=== PATIENT | male | born 1985 | race Caucasian/White ===

== ENCOUNTER 2021-07-23 09:18 | Emergency (ER) | payer BC ==
--- NOTE | 2021-07-23 10:02 | EDM.PDOC ---
ED HPI GENERAL MEDICAL PROBLEM - General Chief Complaint: Back Pain or Injury Stated Complaint: PAIN IN LOWER BACK SIDE Time Seen by Provider: 07/23/21 09:33 Source of Information: Reports: Patient History Limitations: Reports: No Limitations - History of Present Illness INITIAL COMMENTS - FREE TEXT/NARRATIVE: Patient is a 36-year-old male came in today for right-sided flank pain. Patient states that the pain started around 2 AM's been constant in nature radiates up his back not made better or worse with anything. Denies any direct injuries to his back. Denies any urinary symptoms no blood in his urine denies any fever chills nausea vomiting. Right Back Pain Score (Numeric/FACES): 5 - Related Data Allergies Allergy/AdvReac Type Severity Reaction Status Date / Time No Known Allergies Allergy Verified 07/23/21 09:46 Home Meds: Home Meds . [No Known Home Meds] 07/23/21 [History] Past Medical History - Past Health History Medical/Surgical History: Denies Medical/Surgical History Social & Family History - Tobacco Use Tobacco Use Status *Q: Current Every Day Tobacco User Years of Tobacco use: 15 Packs/Tins Daily: 1 - Recreational Drug Use Recreational Drug Use: No ED ROS GENERAL - Review of Systems Review Of Systems: See Below Constitutional: Reports: No Symptoms HEENT: Reports: No Symptoms Respiratory: Reports: No Symptoms Cardiovascular: Reports: No Symptoms Endocrine: Reports: No Symptoms GI/Abdominal: Reports: No Symptoms : Reports: No Symptoms Musculoskeletal: Reports: Back Pain Skin: Reports: No Symptoms Neurological: Reports: No Symptoms Psychiatric: Reports: No Symptoms Hematologic/Lymphatic: Reports: No Symptoms Immunologic: Reports: No Symptoms ED EXAM,LOWER BACK PAIN/INJURY - Physical Exam Exam: See Below Exam Limited By: No Limitations General Appearance: Alert, WD/WN, No Apparent Distress Head: Atraumatic Respiratory/Chest: No Respiratory Distress, Lungs Clear, Normal Breath Sounds Cardiovascular: Normal Peripheral Pulses, Regular Rate, Rhythm GI/Abdominal: Normal Bowel Sounds, Soft, Non-Tender Back Exam: Normal Inspection, Full Range of Motion, CVA Tenderness (L), CVA Tenderness (R) Extremities: Normal Inspection Neurological: Alert, Oriented x 3 Course - Vital Signs Last Recorded V/S: Last Vital Signs Temp 97.9 F 07/23/21 09:46 Pulse 99 07/23/21 09:46 Resp 18 07/23/21 09:46 BP 125/84 07/23/21 09:46 Pulse Ox 97 07/23/21 09:46 - Orders/Labs/Meds Labs: Laboratory Tests 07/23/21 Range/Units 10:40 Urine Color YELLOW Urine Appearance CLEAR Urine pH 7.0 (5.0-8.0) Ur Specific [place] 1.010 (1.001-1.035) Urine Protein NEGATIVE (NEGATIVE) mg/dL Urine Glucose (UA) NEGATIVE (NEGATIVE) mg/dL Urine Ketones NEGATIVE (NEGATIVE) mg/dL Urine Occult Blood NEGATIVE (NEGATIVE) Urine Nitrite NEGATIVE (NEGATIVE) Urine Bilirubin NEGATIVE (NEGATIVE) Urine Urobilinogen 0.2 (<2.0) EU/dL Ur Leukocyte Esterase NEGATIVE (NEGATIVE) - Re-Assessments/Exams Free Text/Narrative Re-Assessment/Exam: 07/23/21 11:26 Pt CAT scan showed a possible passed stone. Pain is resolved patient be discharged home Departure - Departure Time of Disposition: 11:26 Disposition: Home, Self-Care 01 Condition: Good Clinical Impression: Kidney stone on right side - Discharge Information *PRESCRIPTION DRUG MONITORING PROGRAM REVIEWED*: Not Applicable *COPY OF PRESCRIPTION DRUG MONITORING REPORT IN PATIENT KEVIN: Not Applicable Instructions: Kidney Stones, [id number] Referrals: PCP,None [Primary Care Provider] - Forms: ED Department Discharge Additional Instructions: You were seen today for pain to your right side your CAT scan showed a possible passed kidney stone. Recommend you go home continue to hydrate take Tylenol or Motrin as needed and follow-up to primary care physician. The following information is given to patients seen in the emergency department who are being discharged to home. This information is to outline your options for follow-up care. We provide all patients seen in our emergency department with a follow-up referral. The need for follow-up, as well as the timing and circumstances, are variable depending upon the specifics of your emergency department visit. If you don't have a primary care physician on staff, we will provide you with a referral. We always advise you to contact your personal physician following an emergency department visit to inform them of the circumstance of the visit and for follow-up with them and/or the need for any referrals to a consulting specialist. The emergency department will also refer you to a specialist when appropriate. This referral assures that you have the opportunity for follow-up care with a specialist. All of these measure are taken in an effort to provide you with optimal care, which includes your follow-up. Under all circumstances we always encourage you to contact your private physi nandini who remains a resource for coordinating your care. When calling for follow- up care, please make the office aware that this follow-up is from your recent emergency room visit. If for any reason you are refused follow-up, please contact the [facility] Emergency Department at and asked to speak to the emergency department charge nurse. Please follow up with your primary care physician. If you do not have a primary care physician, see below: [facility] [address] [place] [id number] [facility] [address] [place] [address] Sepsis Event Note (ED) - Evaluation Sepsis Screening Result: No Definite Risk - Focused Exam Vital Signs: Vital Signs Temp Pulse Resp BP Pulse Ox 07/23/21 09:46 97.9 F 99 18 125/84 97 - Assessment/Plan Plan: Patient is a 36-year-old male presents today for right-sided abdominal pain. Patient posses a kidney stone. He has no tenderness spinal area or CVA tenderness will obtain CAT scan UA to reassess
--- NOTE | 2021-07-23 11:21 | CT ---
Indication: Right-sided flank pain. Technique: CT of the abdomen and pelvis. No intravenous contrast. Coronal/sagittal reconstruction images. Comparison: None. Findings: Lung bases: No pleural or pericardial effusion. The heart size is normal. There is atelectasis or less likely developing infiltrate at the right lung base, image 33, series 201. This should be correlated for any signs or symptoms of pneumonia. There is no acute airspace disease. No basilar pneumothorax. Questionable 3-4 millimeter nodule in the right middle lobe on image 1, series 201, none entirely included on the field of view. Abdomen/pelvis: Liver morphology is non cirrhotic. There is no solid hepatic mass. Contracted gallbladder. There is no perihepatic ascites. Spleen size is normal. There is no adrenal mass. There is no pancreatic mass or pancreatic duct dilation. No glandular atrophy. There is no solid renal mass. There is minimal right hydronephrosis. See image 69, series 201. No perinephric fat stranding is present. No obstructive urolith. Urinary bladder and perivesical fat are within normal limits. There is a normal caliber, retrocecal appendix. No associated inflammatory changes. No inguinal or pelvic sidewall lymphadenopathy. The retroperitoneum and gastrohepatic ligament are normal. No abdominal aortic aneurysm. There is a sclerotic lesion present in the left iliac bone, likely a benign bone island. This measures 11 millimeters on image 133, series 201. No suspicious bone lesions are seen. The vertebral body heights are maintained on sagittal reconstruction images. Impression: 1. Minimal right hydronephrosis. 2. No obstructive urolith, hydroureter, or perinephric fat stranding. 3. Differential diagnosis includes a recently passed stone or UTI. Suggest correlation with urinalysis and physical exam findings. 4. Normal caliber appendix. 5. No abdominal or pelvic lymphadenopathy. 6. Atelectasis or developing infiltrate at the right lung base. See image 33 of series 201. Please note that all CT scans at this facility use dose modulation, iterative reconstruction, and/or weight-based dosing when appropriate to reduce radiation dose to as low as reasonably achievable. Dictated by Chaz Pantoja MD @ 07/23/2021 11:19:34 AM (Electronically Signed)
== END 2021-07-23 11:36 | disposition home or self-care (01) ==
LOC: MW.ED 09:18
DX: N20.0 Calculus of kidney (principal); Z72.0 Tobacco use
CPT/HCPCS: 74176; 74176-26; 81003; 99284-25